=== PATIENT | male | born 1980 | race Caucasian/White ===

== ENCOUNTER 2016-06-19 22:50 | Emergency (ER) | payer MEDICARE, MEDICAID ==
[~2016-06-19] VITALS: Ht 177.8 cm; Wt 114.0 kg
[~2016-06-19 22:50] MED LIST: ATOR1TAB18 PO; CITA20TA4 PO; LEVO-171 PO; LISI10TA PO; MEDR4PAK3 PO; METO100T PO; NAPR250T PO; PRED50 PO
[2016-06-19 22:51] VITALS: BP 158/109; PULSE 121; RESP 20; TEMP 98.5; O2SAT 97
[2016-06-19] MEDS ORDERED: SODIUM CHLOR 0.9% 1000 ML INJ 1,000 ML IV SCH (23:09)
[2016-06-19] MEDS ORDERED: SODIUM CHLORIDE 0.9% FLUSH 5 ML FLUSH IVF PRN (23:15)
[2016-06-19] MEDS ORDERED: SODIUM CHLOR 0.9% 1000 ML INJ 1,000 ML IV ONE (23:15)
--- NOTE | 2016-06-19 23:20 | PD ---
HPI Chief Complaint: Diabetic Time Seen by Provider: 23:02 Travel History International Travel<30 days: No Contact w/Intl Traveler<30days: No Traveled to known affect area: No History of Present Illness HPI Patient is a 35-year-old male with history of hypertension, hyperlipidemia, hypothyroidism, and to emergency room for evaluation of possible diabetes and hyperglycemia. Patient reports that he has a strong family history of diabetes , reports that he does follow up with his primary care doctor and his primary care doctor to tell him that he did not have diabetes but was prediabetic. Reports that he has been checking his blood sugars intermittently. Patient reports that he ate at [email or web address] today and had some pizza, salad and noted his blood sugar to be 245 at 1030pm. Patient reports that he felt so lightheaded and dizzy, reports concerns that he may be a diabetic. Patient denies fevers or chills. Patient denies chest pain or shortness of breath. Patient with no other complaints. Blood sugar in ER 190. PFSH Past Medical History Anxiety: Yes High Cholesterol: Yes Diabetes: Yes Diminished Hearing: No Hypertension: Yes Musculoskeletal: Yes (c/o "slipped disc" back ) Immunizations Current: Yes Thyroid Disease: Yes Past Surgical History Eye Surgery: Yes (RIGHT EYE) Family History Family History: DM Social History Alcohol Use: Yes (OCC) Tobacco Use: No Substance Use: No Allergies-Medications (Allergen,Severity, Reaction): Coded Allergies: No Known Allergies (Verified , 06/19/16) Reported Meds & Prescriptions Reported Meds & Active Scripts Active Reported Citalopram (Citalopram Hydrobromide) 20 Mg Tab 20 Mg PO DAILY Levothyroxine (Levothyroxine Sodium) 300 Mcg Tab 400 Mcg PO DAILY Lisinopril-Hctz 10-12.5 Mg Tab 1 Tab PO DAILY Atorvastatin (Atorvastatin Calcium) 80 Mg Tab 80 Mg PO HS Metoprolol Tartrate 100 Mg Tab 100 Mg PO BID Review of Systems General / Constitutional: No: Fever Eyes: No: Visual changes HENT: Positive: Lightheadedness, No: Headaches Cardiovascular: No: Chest Pain or Discomfort Respiratory: No: Shortness of Breath Gastrointestinal: No: Nausea, Vomiting, Abdominal Pain Genitourinary: No: Urgency, Frequency, Dysuria Musculoskeletal: No: Pain Skin: No Rash Neurologic: Positive: Dizziness, No: Weakness Psychiatric: No: Depression Endocrine: Positive: Polyuria, Polydipsia Hematologic/Lymphatic: No: Easy Bruising Physical Exam Exam Limitations: Poor Historian Narrative GENERAL: nad SKIN: Warm and dry. HEAD: Atraumatic. Normocephalic. ENT: No nasal bleeding or discharge. Mucous membranes pink and moist. NECK: Trachea midline. No JVD. CARDIOVASCULAR: Tachycardic. No murmur appreciated. RESPIRATORY: No accessory muscle use. Clear to auscultation. Breath sounds equal bilaterally. GASTROINTESTINAL: Abdomen soft, non-tender, nondistended. Hepatic and splenic margins not palpable. MUSCULOSKELETAL: No obvious deformities. No clubbing. No cyanosis. No edema. NEUROLOGICAL: Awake and alert. No obvious cranial nerve deficits. Motor grossly within normal limits. Normal speech. PSYCHIATRIC: Appropriate mood and affect; Data Data Last Documented VS Vital Signs Date Time Temp Pulse Resp B/P Pulse Ox O2 Delivery O2 Flow Rate FiO2 06/19/16 22:51 98.5 121 20 158/109 97 Orders Complete Blood Count With Diff (06/19/16 23:09) Comprehensive Metabolic Panel (06/19/16 23:09) Urinalysis - C+S If Indicated (06/19/16 23:09) Iv Access Insert/Monitor (06/19/16 23:09) Ecg Monitoring (06/19/16 23:09) Sodium Chlor 0.9% 1000 Ml Inj (Ns 1000 M (06/19/16 23:09) Sodium Chloride 0.9% Flush (Ns Flush) (06/19/16 23:15) Bedside Glucose SARAH.AC&HS (06/19/16 23:09) Sodium Chlor 0.9% 1000 Ml Inj (Ns 1000 M (06/19/16 23:15) Labs Laboratory Tests Test 06/19/16 23:25 White Blood Count 6.0 TH/MM3 Red Blood Count 4.82 MIL/MM3 Hemoglobin 14.0 GM/DL Hematocrit 41.5 % Mean Corpuscular Volume 86.1 FL Mean Corpuscular Hemoglobin 29.1 PG Mean Corpuscular Hemoglobin 33.8 % Concent Red Cell Distribution Width 12.9 % Platelet Count 99 TH/MM3 Mean Platelet Volume 9.3 FL Neutrophils (%) (Auto) 50.3 % Lymphocytes (%) (Auto) 33.6 % Monocytes (%) (Auto) 14.5 % Eosinophils (%) (Auto) 1.1 % Basophils (%) (Auto) 0.5 % Neutrophils # (Auto) 3.0 TH/MM3 Lymphocytes # (Auto) 2.0 TH/MM3 Monocytes # (Auto) 0.9 TH/MM3 Eosinophils # (Auto) 0.1 TH/MM3 Basophils # (Auto) 0.0 TH/MM3 CBC Comment AUTO DIFF MDM Medical Decision Making Medical Screen Exam Complete: Yes Emergency Medical Condition: Yes Interpretation(s) Vital Signs Date Time Temp Pulse Resp B/P Pulse Ox O2 Delivery O2 Flow Rate FiO2 06/19/16 22:51 98.5 121 20 158/109 97 Differential Diagnosis New onset diabetes, dehydration, anxiety reaction, electrolyte abnormality Narrative Course Patient is a 35-year-old male who presents to emergency room with complaints of possible new-onset diabetes. Patient reports that he has been monitoring his blood sugars and noticed that his blood sugar was high after he ate pizza and drank sweet tea ice tea. Reports "i think I have diabetes." Reports that he has been feeling lightheaded and dizzy over the past few hours. Denies chest pain/sob. Reports that he does follow with his pcp and he was told that he was pre-diabetic and is currently not on any medications for diabetes. pt mildly tachycardic in ER with BS 190. cbc, bmp, ua ordered. will give ivf and hydrate patient. discussed with patient that his hyperglycemia is most likely secondary to his recent meal full of sugars. pt did think about this comment and reports "yeah, i guess you are right." I did educate patient on a healthier diabetic diet. Patient understands importance of decreasing his carbohydrate intake as well as his sugar intake. Understands that if he takes his BS after he eats a high carb/sugar meal, his bs will be elevated. Patient signed out to care of Dr. Smith at end of shift Diagnosis Primary Impression: Hyperglycemia Patient Instructions: General Instructions Additional Instructions: Please follow-up with your primary care doctor as soon as possible Return to ER as needed Please monitor your foods that you eat as meals full of carbohydrates and sugars will elevate your blood sugars Jennifer Sahu DO Jun 19, 2016 23:20
[2016-06-19 23:44] LABS: BASOPHIL % 0.5 % (0.0-2.0); EOSINOPHIL # 0.1 TH/MM3 (0-0.4); EOSINOPHIL % 1.1 % (0.0-4.0); HEMATOCRIT 41.5 % (39.0-51.0); LYMPH % 33.6 % (9.0-44.0); MEAN CELL VOLUME 86.1 FL (80.0-100.0); MEAN CORPUSCULAR HEMOGLOBIN 29.1 PG (27.0-34.0); MEAN CORPUSCULAR HGB CONC 33.8 % (32.0-36.0); MONO % 14.5 % (0.0-8.0); NEUT % 50.3 % (16.0-70.0); PLATELET COUNT 99 TH/MM3 (150-450); RED BLOOD COUNT 4.82 MIL/MM3 (4.50-5.90); RED CELL DISTRIBUTION WIDTH 12.9 % (11.6-17.2)
[2016-06-19 23:56] LABS: HEMO FLAGS AUTO DIFF
[2016-06-19 23:59] LABS: CHLORIDE 102 MEQ/L (98-107); POTASSIUM 3.7 MEQ/L (3.5-5.1); SODIUM (NA) 139 MEQ/L (136-145)
[2016-06-20 00:03] LABS: ANION GAP 10 MEQ/L (5-15); BICARBONATE 26.7 MEQ/L (21.0-32.0); BLOOD UREA NITROGEN 14 MG/DL (7-18)
[2016-06-20 00:06] LABS: ALT (GPT) 80 U/L (12-78); AST (GOT) 39 U/L (15-37); GLOMERULAR FILTRATION RATE 125 ML/MIN (>89)
[2016-06-20 00:08] LABS: TOTAL BILIRUBIN ADULT 0.5 MG/DL (0.2-1.0)
[2016-06-20 00:09] LABS: ALKALINE PHOSPHATASE 65 U/L (45-117)
[2016-06-20 00:20] LABS: PLATELET ESTIMATE SMEAR LOW (NORMAL); PLATELET MORPHOLOGY ENLARGED (NORMAL); SCAN/DIFF AUTO DIFF CONFIRMED
[2016-06-20 00:24] LABS: BLOOD, URINE NEG (NEG); GLUCOSE,URINE NEG (NEG); KETONE, URINE NEG (NEG); NITRITE,URINE NEG (NEG)
[2016-06-20 00:29] LABS: METHOD OF COLLECTION CLEAN CATCH; URINE COLOR YELLOW (YELLW/STRAW)
[2016-06-20 00:31] LABS: COMMENT (UR) CULT NOT INDICATED; CULTURE IF INDICATED CULT NOT INDICATED; SQUAMOUS EPITHELIAL CELL URINE 0-5 /hpf (0-5); WBC, URINE 0-2 /hpf (0-5)
--- NOTE | 2016-06-20 00:47 | PD ---
Physical Exam Time Seen by Provider: 00:[address] Sahu left this patient with me to make sure the blood sugar came down and discharge the patient. Data Data Last Documented VS Vital Signs Date Time Temp Pulse Resp B/P Pulse Ox O2 Delivery O2 Flow Rate FiO2 06/19/16 22:51 98.5 121 20 158/109 97 Orders Complete Blood Count With Diff (06/19/16 23:09) Comprehensive Metabolic Panel (06/19/16 23:09) Urinalysis - C+S If Indicated (06/19/16 23:09) Iv Access Insert/Monitor (06/19/16 23:09) Ecg Monitoring (06/19/16 23:09) Sodium Chlor 0.9% 1000 Ml Inj (Ns 1000 M (06/19/16 23:09) Sodium Chloride 0.9% Flush (Ns Flush) (06/19/16 23:15) Bedside Glucose SARAH.AC&HS (06/19/16 23:09) Sodium Chlor 0.9% 1000 Ml Inj (Ns 1000 M (06/19/16 23:15) Labs Laboratory Tests Test 06/19/16/06/05 23:25 00:05 White Blood Count 6.0 TH/MM3 Red Blood Count 4.82 MIL/MM3 Hemoglobin 14.0 GM/DL Hematocrit 41.5 % Mean Corpuscular Volume 86.1 FL Mean Corpuscular Hemoglobin 29.1 PG Mean Corpuscular Hemoglobin 33.8 % Concent Red Cell Distribution Width 12.9 % Platelet Count 99 TH/MM3 Mean Platelet Volume 9.3 FL Neutrophils (%) (Auto) 50.3 % Lymphocytes (%) (Auto) 33.6 % Monocytes (%) (Auto) 14.5 % Eosinophils (%) (Auto) 1.1 % Basophils (%) (Auto) 0.5 % Neutrophils # (Auto) 3.0 TH/MM3 Lymphocytes # (Auto) 2.0 TH/MM3 Monocytes # (Auto) 0.9 TH/MM3 Eosinophils # (Auto) 0.1 TH/MM3 Basophils # (Auto) 0.0 TH/MM3 CBC Comment AUTO DIFF Differential Comment AUTO DIFF CONFIRMED Platelet Estimate LOW Platelet Morphology Comment ENLARGED Sodium Level 139 MEQ/L Potassium Level 3.7 MEQ/L Chloride Level 102 MEQ/L Carbon Dioxide Level 26.7 MEQ/L Anion Gap 10 MEQ/L Blood Urea Nitrogen 14 MG/DL Creatinine 0.72 MG/DL Estimat Glomerular Filtration 125 ML/MIN Rate Random Glucose 166 MG/DL Calcium Level 8.8 MG/DL Total Bilirubin 0.5 MG/DL Aspartate Amino Transf 39 U/L (AST/SGOT) Alanine Aminotransferase 80 U/L (ALT/SGPT) Alkaline Phosphatase 65 U/L Total Protein 7.5 GM/DL Albumin 3.7 GM/DL Urine Collection Type CLEAN CATCH Urine Color YELLOW Urine Turbidity CLEAR Urine pH 6.0 Urine Specific [place] 1.021 Urine Protein NEG mg/dL Urine Glucose (UA) NEG mg/dL Urine Ketones NEG mg/dL Urine Occult Blood NEG Urine Nitrite NEG Urine Bilirubin NEG Urine Leukocyte Esterase NEG Urine WBC 0-2 /hpf Urine Squamous Epithelial 0-5 /hpf Cells Microscopic Urinalysis Comment CULT NOT INDICATED MDM Medical Record Reviewed: Yes Supervised Visit with [place]: Yes Interpretation(s) It is now 1240 and the patient's blood sugar is 137. He feels fine and is ready to go home. Differential Diagnosis Hyperglycemia, diabetes [id number], electrolyte disorder, anxiety, dehydration Narrative Course The patient has been given IV fluids and his blood sugar is down to 137. He is ready to go home. He needs to follow-up with his primary care physician. Diagnosis Primary Impression: Hyperglycemia Patient Instructions: General Instructions Additional Instruction: Please follow-up with your primary care doctor as soon as possible Return to ER as needed Please monitor your foods that you eat as meals full of carbohydrates and sugars will elevate your blood sugars Med/Other Pt SpecificInfo: No Change to Meds Disposition: 01 DISCHARGE HOME Condition: Stable Darrion Smith MD Jun 20, 2016 00:47
[2016-06-20 01:09] VITALS: BP 162/98
== END 2016-06-20 01:14 | disposition home or self-care (01) ==
LOC: PHED 22:50
DX: E11.65 Type 2 diabetes mellitus with hyperglycemia (principal); E78.00 Pure hypercholesterolemia, unspecified; I10 Essential (primary) hypertension; F41.9 Anxiety disorder, unspecified
CPT/HCPCS: 80053; 81001; 85025; 96360; 96361; 99284; J7030

== ENCOUNTER 2017-02-09 01:06 | Emergency (ER) | payer MEDICARE, MEDICAID ==
[~2017-02-09] VITALS: Ht 177.8 cm; Wt 114.0 kg
[~2017-02-09 01:06] MED LIST changes: -MEDR4PAK3 PO; -NAPR250T PO; -PRED50 PO
[2017-02-09 01:14] VITALS: BP 176/113; PULSE 103; RESP 20; TEMP 98.2; O2SAT 99
[2017-02-09 01:34] LABS: BASOPHIL # 0.1 TH/MM3 (0-0.2); BASOPHIL % 0.9 % (0.0-2.0); EOSINOPHIL # 0.1 TH/MM3 (0-0.4); EOSINOPHIL % 2.1 % (0.0-4.0); HEMATOCRIT 38.9 % (39.0-51.0); HEMO FLAGS DIFF FINAL; LYMPH % 35.6 % (9.0-44.0); LYMPHOCYTE # 2.1 TH/MM3 (1.0-4.8); MEAN CORPUSCULAR HEMOGLOBIN 29.5 PG (27.0-34.0); MEAN CORPUSCULAR HGB CONC 34.3 % (32.0-36.0); MONO % 11.8 % (0.0-8.0); NEUT % 49.6 % (16.0-70.0); PLATELET COUNT 108 TH/MM3 (150-450); RED BLOOD COUNT 4.52 MIL/MM3 (4.50-5.90); RED CELL DISTRIBUTION WIDTH 12.1 % (11.6-17.2)
[2017-02-09 01:43] LABS: CHLORIDE 103 MEQ/L (98-107); POTASSIUM 3.5 MEQ/L (3.5-5.1); SODIUM (NA) 138 MEQ/L (136-145)
[2017-02-09] MEDS ORDERED: GABA300C5 PO (01:44)
[2017-02-09] MEDS ORDERED: MELO7.5T4 PO (01:44)
[2017-02-09] MEDS ORDERED: PRAZ1CAP PO (01:44)
[2017-02-09] MEDS ORDERED: TRAZ50TA12 PO (01:44)
[2017-02-09] MEDS ORDERED: SODIUM CHLORIDE 0.9% FLUSH 10 ML FLUSH IVF PRN (01:45)
[2017-02-09 01:46] VITALS: O2SAT 100
[2017-02-09 01:47] LABS: ANION GAP 9 MEQ/L (5-15); BICARBONATE 26.2 MEQ/L (21.0-32.0); BLOOD UREA NITROGEN 13 MG/DL (7-18)
[2017-02-09 01:49] VITALS: BP 176/113; PULSE 103
[2017-02-09 01:50] VITALS: BP 169/104; PULSE 103
[2017-02-09 01:50] LABS: AST (GOT) 22 U/L (15-37); GLOMERULAR FILTRATION RATE 117 ML/MIN (>89)
[2017-02-09 01:51] LABS: TOTAL BILIRUBIN ADULT 0.3 MG/DL (0.2-1.0)
--- NOTE | 2017-02-09 01:52 | PD ---
HPI Chief Complaint: Chest Pain Time Seen by Provider: 01:39 Travel History International Travel<30 days: No Contact w/Intl Traveler<30days: No Traveled to known affect area: No History of Present Illness HPI The patient is a 36-year-old male that states she was walking back from the [facility] when he felt a sharp, stabbing pain over the mid sternum and it hurt to take a deep breath. He denies any fever and he has had a headache before he left for the store. He says both ankles felt numb but this has resolved. Apparently, he called the ambulance and the ambulance personnel gave him nitroglycerin spray and 2 baby aspirin. He has a learning disability and this is why he is on Medicare. He has no history of heart disease. He does have a history of hypertension as well as elevated cholesterol and hypothyroid. He also has obesity. PFSH Past Medical History Anxiety: Yes Cardiovascular Problems: Yes (htn) High Cholesterol: Yes Diabetes: Yes (not diagnosed) Patient Takes Glucophage: No Diminished Hearing: No Hypertension: Yes Musculoskeletal: Yes (c/o "slipped disc" back ) Immunizations Current: Yes Thyroid Disease: Yes Tetanus Vaccination: Unknown Influenza Vaccination: No Past Surgical History Surgical History: No Previous Surgery Eye Surgery: Yes (RIGHT EYE) Social History Alcohol Use: Yes (OCC) Tobacco Use: No Substance Use: No Allergies-Medications (Allergen,Severity, Reaction): Coded Allergies: No Known Allergies (Verified , 06/19/16) Reported Meds & Prescriptions Reported Meds & Active Scripts Active Prednisone 50 Mg Tab 50 Mg PO DAILY 7 Days Reported Trazodone (Trazodone HCl) 50 Mg Tab 50 Mg PO HS PRN Meloxicam 7.5 Mg Tab 7.5 Mg PO DAILY Prazosin (Prazosin HCl) 1 Mg Cap 1 Mg PO QD Gabapentin 300 Mg Cap 300 Mg PO TID Levothyroxine (Levothyroxine Sodium) 300 Mcg Tab 400 Mcg PO DAILY Lisinopril-Hctz 10-12.5 Mg Tab 1 Tab PO DAILY Metoprolol Tartrate 100 Mg Tab 100 Mg PO BID Review of Systems Except as stated in HPI: all other systems reviewed are Neg Physical Exam Narrative GENERAL: The patient is alert, oriented 3 in minimal apparent distress with his chest discomfort. His vital signs show temperature 176/113 with a heart rate of 103. SKIN: Focused skin assessment warm/dry. HEAD: Atraumatic. Normocephalic. EYES: Pupils equal and round. No scleral icterus. No injection or drainage. ENT: No nasal bleeding or discharge. Mucous membranes pink and moist. NECK: Trachea midline. No JVD. CARDIOVASCULAR: Regular rate and rhythm. No murmur appreciated. RESPIRATORY: No accessory muscle use. Clear to auscultation. Breath sounds equal bilaterally. GASTROINTESTINAL: Abdomen soft, non-tender, nondistended. Hepatic and splenic margins not palpable. MUSCULOSKELETAL: No obvious deformities. No clubbing. No cyanosis. No edema. NEUROLOGICAL: Awake and alert. No obvious cranial nerve deficits. Motor grossly within normal limits. Normal speech. PSYCHIATRIC: Appropriate mood and affect; insight and judgment normal. Data Data Last Documented VS Vital Signs Date Time Temp Pulse Resp B/P (MAP) Pulse Ox O2 Delivery O2 Flow Rate FiO2 02/09/17 02:31 101 172/97 (122) 02/09/17 01:46 100 Nasal Cannula 2.00 02/09/17 01:14 98.2 20 Orders Orders Complete Blood Count With Diff (02/09/17 01:19) Comprehensive Metabolic Panel (02/09/17 01:19) Troponin I (02/09/17 01:19) Electrocardiogram (02/09/17 01:39) D-Dimer (02/09/17 01:39) Ecg Monitoring (02/09/17 01:39) Bilateral Bp Monitoring (02/09/17 01:39) Iv Access Insert/Monitor (02/09/17 01:39) Oximetry (02/09/17 01:39) Oxygen Administration (02/09/17 01:39) Sodium Chloride 0.9% Flush (Ns Flush) (02/09/17 01:45) Chest, Pa & Lat (02/09/17 01:39) Magnesium (Mg) (02/09/17 01:25) Labs Laboratory Tests Test 02/09/17 01:25 White Blood Count 6.0 TH/MM3 Red Blood Count 4.52 MIL/MM3 Hemoglobin 13.3 GM/DL Hematocrit 38.9 % Mean Corpuscular Volume 86.0 FL Mean Corpuscular Hemoglobin 29.5 PG Mean Corpuscular Hemoglobin Concent 34.3 % Red Cell Distribution Width 12.1 % Platelet Count 108 TH/MM3 Mean Platelet Volume 10.4 FL Neutrophils (%) (Auto) 49.6 % Lymphocytes (%) (Auto) 35.6 % Monocytes (%) (Auto) 11.8 % Eosinophils (%) (Auto) 2.1 % Basophils (%) (Auto) 0.9 % Neutrophils # (Auto) 3.0 TH/MM3 Lymphocytes # (Auto) 2.1 TH/MM3 Monocytes # (Auto) 0.7 TH/MM3 Eosinophils # (Auto) 0.1 TH/MM3 Basophils # (Auto) 0.1 TH/MM3 CBC Comment DIFF FINAL Differential Comment D-Dimer Quantitative (PE/DVT) LESS THAN 0.19 MG/L FEU Blood Urea Nitrogen 13 MG/DL Creatinine 0.76 MG/DL Random Glucose 123 MG/DL Total Protein 7.0 GM/DL Albumin 3.4 GM/DL Calcium Level 8.6 MG/DL Magnesium Level 1.6 MG/DL Alkaline Phosphatase 55 U/L Aspartate Amino Transf (AST/SGOT) 22 U/L Alanine Aminotransferase (ALT/SGPT) 40 U/L Total Bilirubin 0.3 MG/DL Sodium Level 138 MEQ/L Potassium Level 3.5 MEQ/L Chloride Level 103 MEQ/L Carbon Dioxide Level 26.2 MEQ/L Anion Gap 9 MEQ/L Estimat Glomerular Filtration Rate 117 ML/MIN Troponin I LESS THAN 0.02 NG/ML MDM Medical Decision Making Medical Screen Exam Complete: Yes Emergency Medical Condition: Yes Medical Record Reviewed: Yes Interpretation(s) The EKG shows sinus tachycardia of 108 and minimal voltage criteria for LVH. No acute ST elevation or depression. The d-dimer is less than 0.19. The complete metabolic profile shows a glucose of 123 but is otherwise unremarkable. The troponin I is normal. The CBC is normal except for hematocrit of 38.9. Differential Diagnosis Atypical chest pain, chest wall pain, pleuritic chest pain, acute coronary syndrome-unlikely, esophageal pain, gastrointestinal pain, electrolyte disorder , hypo-/hyperglycemia, renal insufficiency, anxiety Narrative Course The patient has atypical chest pain. There is nothing in the history that suggest a myocardial infarction and there is nothing in the EKG or lab work that suggest a myocardial infarction. Diagnosis Primary Impression: Atypical chest pain Additional Instructions: Follow-up with your primary care physician next week. The lab work is given to you to take to him. This does not appear to be heart related pain, this appears to be likely chest wall pain. Med/Other Pt SpecificInfo: No Change to Meds Disposition: 01 DISCHARGE HOME Condition: Stable Darrion Smith MD Feb 09, 2017 01:52
[2017-02-09 01:53] LABS: ALKALINE PHOSPHATASE 55 U/L (45-117)
[2017-02-09 02:01] LABS: ALT (GPT) 40 U/L (12-78)
[2017-02-09 02:07] LABS: MAGNESIUM 1.6 MG/DL (1.5-2.5)
[2017-02-09] MEDS ORDERED: PRED50 PO (02:14)
--- NOTE | 2017-02-09 02:21 | RADRPT ---
EXAM DATE/TIME: 02/09/2017 01:52 [facility] COMPARISON: No previous studies available for comparison. INDICATIONS : Chest pain. MEDICAL HISTORY : None. SURGICAL HISTORY : None. ENCOUNTER: Initial ACUITY: 1 day PAIN SCORE: 7/10 LOCATION: Bilateral chest FINDINGS: PA and lateral views of the chest demonstrate the lungs to be symmetrically aerated without evidence of mass, infiltrate or effusion. The cardiomediastinal contours are unremarkable. Osseous structure s are intact. CONCLUSION: The lungs are clear. Sky Diez MD on February 09, 2017 at 2:20 Board Certified Radiologist. This report was verified electronically.
[2017-02-09 02:31] VITALS: BP 172/97; PULSE 101
[2017-02-09 03:18] VITALS: BP 164/99; TEMP 98.1
--- NOTE | 2017-02-09 16:34 | EKG ---
Date Performed: 02/09/2017 Time Performed: 01:08:38 PTAGE: 36 years EKG: SINUS TACHYCARDIA POSSIBLE LVH Compared to prior tracing no significant change ABNORMAL ECG PREVIOUS TRACING : 07/04/1992 16.26 DOCTOR: Reuben Rudd Interpretating Date/Time 02/09/2017 16:33:16
== END 2017-02-09 03:21 | disposition home or self-care (01) ==
LOC: PHED 01:06
DX: R07.89 Other chest pain (principal); R51 Headache; I10 Essential (primary) hypertension; E03.9 Hypothyroidism, unspecified; Z79.899 Other long term (current) drug therapy
CPT/HCPCS: 71020; 80053; 83735; 84484; 85025; 85379; 93005; 99285

== ENCOUNTER 2017-03-11 12:58 | Emergency (ER) | payer MEDICARE, MEDICAID ==
[~2017-03-11] VITALS: Ht 177.8 cm; Wt 111.1 kg
[~2017-03-11 12:58] MED LIST changes: -ATOR1TAB18 PO; -CITA20TA4 PO; +GABA300C5 PO; +MELO7.5T4 PO; +PRAZ1CAP PO; +TRAZ50TA12 PO
[2017-03-11 13:02] VITALS: BP 160/97; PULSE 89; RESP 16; TEMP 98.5; O2SAT 96
[2017-03-11] MEDS ORDERED: PENI500T PO (13:42)
--- NOTE | 2017-03-11 13:42 | PD ---
HPI . Dentalgia Chief Complaint: Oral / Dental Pain or Problem Time Seen by Provider: 13:18 Travel History International Travel<30 days: No Contact w/Intl Traveler<30days: No Traveled to known affect area: No History of Present Illness HPI 36-year-old male patient presents emergency department for evaluation of dentalgia. The pain is originating at tooth #17 and initially started approximately one week ago. Patient states that he has had recurrent problems with his teeth and needs to get them pulled but has been unable to for financial constraints. There is obvious decay to multiple teeth throughout the patient's mouth. Tooth #17 is largely decayed. There is gingival erythema surrounding the tooth and a small amount of purulent drainage oozing from behind the tooth. The patient denies any fevers, chills, malaise, chest pain, shortness breath, abdominal pain, nausea, vomiting, diarrhea or lightheadedness. PFSH Past Medical History Hx Anticoagulant Therapy: No Anxiety: Yes Cardiovascular Problems: Yes (HTN, CHOL) High Cholesterol: Yes Diabetes: Yes (BORDERLINE) Diminished Hearing: No Hypertension: Yes Musculoskeletal: Yes (c/o "slipped disc" back ) Immunizations Current: Yes Thyroid Disease: Yes Tetanus Vaccination: Unknown Past Surgical History Eye Surgery: Yes (RIGHT EYE) Social History Alcohol Use: No Tobacco Use: No Substance Use: No Allergies-Medications (Allergen,Severity, Reaction): Coded Allergies: No Known Allergies (Verified , 03/11/17) Reported Meds & Prescriptions Reported Meds & Active Scripts Active Chlorhexidine Gluconate (Mouth) Liq (Chlorhexidine Gluconate) 0.12% Soln 15 Ml SWISH-SPIT BID Penicillin V Potassium 500 Mg Tab 500 Mg PO Q6H 7 Days Reported Trazodone (Trazodone HCl) 50 Mg Tab 50 Mg PO HS PRN Meloxicam 7.5 Mg Tab 7.5 Mg PO DAILY Prazosin (Prazosin HCl) 1 Mg Cap 1 Mg PO QD Gabapentin 300 Mg Cap 300 Mg PO TID Levothyroxine (Levothyroxine Sodium) 300 Mcg Tab 400 Mcg PO DAILY Lisinopril-Hctz 10-12.5 Mg Tab 1 Tab PO DAILY Metoprolol Tartrate 100 Mg Tab 100 Mg PO BID Review of Systems Except as stated in HPI: all other systems reviewed are Neg Physical Exam Narrative GENERAL: Well-nourished, well-developed 36-year-old male patient in no acute distress. Nontoxic appearing. SKIN: Focused skin assessment warm/dry. HEAD: Normocephalic. Atraumatic. EYES: No scleral icterus. No injection or drainage. MOUTH: Moderate amount of gingival erythema and edema noted around tooth #17. Small amount of purulent drainage noted oozing from the posterior aspect of tooth #17. NECK: Supple, trachea midline. No JVD or lymphadenopathy. CARDIOVASCULAR: Regular rate and rhythm without murmurs, gallops, or rubs. RESPIRATORY: Breath sounds equal bilaterally. No accessory muscle use. GASTROINTESTINAL: Abdomen soft, non-tender, nondistended. MUSCULOSKELETAL: No cyanosis, or edema. BACK: Nontender without obvious deformity. No CVA tenderness. Data Data Last Documented VS Vital Signs Date Time Temp Pulse Resp B/P (MAP) Pulse Ox O2 Delivery O2 Flow Rate FiO2 03/11/17 13:02 98.5 89 16 160/97 (118) 96 Orders Orders Ed Discharge Order (03/11/17 13:42) MDM Medical Decision Making Medical Screen Exam Complete: Yes Emergency Medical Condition: Yes Differential Diagnosis Differential diagnoses include but not limited to dental abscess, pulpitis, gingivitis Narrative Course 36-year-old male patient presents emergency department for evaluation of dentalgia 1 week. Patient is well-appearing and denies having had any fevers. Patient is afebrile here in triage. Moderate amount of gingival erythema and edema noted around tooth #17 with a pain is originating. Small amount of purulent discharge oozing from the posterior aspect of tooth #17. There is no pockets of infection that currently needs drained due to the fact that it is already draining. Patient will be given antibiotics, chlorhexidine mouthwash and instructions to follow-up with the dentist. Patient will be given community resource information such as the [facility]. Patient instructed to return the emergency Department with any signs of worsening infection. Diagnosis Primary Impression: Dental abscess Referrals: Dentist Patient Instructions: Dental Abscess (ED), General Instructions Additional Instructions: Continue to use clove oil. Take medications as prescribed. Return to the emergency Department with any worsening infection such as increasing pain, fevers, chills. Follow-up with a dentist. May use [id number] ibuprofen as needed for pain or swelling. May use ice or heating packs as needed for pain management and swelling. Med/Other Pt SpecificInfo: Prescription(s) given Scripts Chlorhexidine Gluconate (Mouth) Liq (Chlorhexidine Gluconate (Mouth) Liq) 0.12% Soln 15 ML SWISH-SPIT BID, #473 ML 0 Refills Prov: Jessie Lee 03/11/17 Penicillin V Potassium (Penicillin V Potassium) 500 Mg Tab 500 MG PO Q6H for Infection for 7 Days, #28 TAB 0 Refills Prov: Jessie Lee 03/11/17 Disposition: 01 DISCHARGE HOME Condition: Stable Jessie Lee Mar 11, 2017 13:42
[2017-03-11] MEDS ORDERED: CHLO.12%30 SWISH-SPIT (13:45)
== END 2017-03-11 14:07 | disposition home or self-care (01) ==
LOC: PHEFT 12:58
DX: K04.7 Periapical abscess without sinus (principal); I10 Essential (primary) hypertension; R73.03 Prediabetes; E07.9 Disorder of thyroid, unspecified; E78.00 Pure hypercholesterolemia, unspecified; Z86.59 Personal history of other mental and behavioral disorders; Z86.79 Personal history of other diseases of the circulatory system; Z87.39 Personal history of other diseases of the musculoskeletal system and connective tissue
CPT/HCPCS: 99283

== ENCOUNTER 2017-06-24 13:01 | Emergency (ER) | payer MEDICARE, MEDICAID ==
[~2017-06-24] VITALS: Ht 177.8 cm; Wt 111.0 kg
[~2017-06-24 13:01] MED LIST changes: +CHLO.12%30 SWISH-SPIT; +MELO7.5T27 PO; -MELO7.5T4 PO; +PENI500T PO
[2017-06-24 13:07] VITALS: BP 169/114; PULSE 73; RESP 16; TEMP 98.4; O2SAT 97
[2017-06-24] MEDS ORDERED: AZIT250T3 PO (15:22)
[2017-06-24] MEDS ORDERED: ALBUAER3 INH (15:22)
--- NOTE | 2017-06-24 15:23 | PD ---
HPI Chief Complaint: Cold / Flu Symptoms Time Seen by Provider: 14:36 Travel History International Travel<30 days: No Contact w/Intl Traveler<30days: No Traveled to known affect area: No History of Present Illness HPI This is a 36-year-old male here with reported productive cough 10 days. He is reporting colored sputum. Subjective fevers. He is also reporting intermittent wheezing. Symptom severity is moderate. No aggravating or alleviating factors. PFSH Past Medical History Hx Anticoagulant Therapy: No Anxiety: Yes Cardiovascular Problems: Yes (HTN, CHOL) High Cholesterol: Yes Diabetes: Yes (BORDERLINE) Diminished Hearing: No Hypertension: Yes Musculoskeletal: Yes (c/o "slipped disc" back ) Immunizations Current: Yes Thyroid Disease: Yes Past Surgical History Eye Surgery: Yes (RIGHT EYE) Social History Alcohol Use: No Tobacco Use: No Substance Use: No Allergies-Medications (Allergen,Severity, Reaction): Coded Allergies: No Known Allergies (Verified Adverse Reaction, Unknown, 06/24/17) Reported Meds & Prescriptions Reported Meds & Active Scripts Active Chlorhexidine Gluconate (Mouth) Liq (Chlorhexidine Gluconate) 0.12% Soln 15 Ml SWISH-SPIT BID Penicillin V Potassium 500 Mg Tab 500 Mg PO Q6H 7 Days Reported Trazodone (Trazodone HCl) 50 Mg Tab 50 Mg PO HS PRN Meloxicam 7.5 Mg Tab 7.5 Mg PO DAILY Prazosin (Prazosin HCl) 1 Mg Cap 1 Mg PO QD Gabapentin 300 Mg Cap 300 Mg PO TID Levothyroxine (Levothyroxine Sodium) 300 Mcg Tab 400 Mcg PO DAILY Lisinopril-Hctz 10-12.5 Mg Tab 1 Tab PO DAILY Metoprolol Tartrate 100 Mg Tab 100 Mg PO BID Review of Systems Except as stated in HPI: all other systems reviewed are Neg General / Constitutional: Positive: Fever Eyes: No: Visual changes HENT: No: Headaches Cardiovascular: No: Chest Pain or Discomfort Respiratory: Positive: Cough Gastrointestinal: No: Abdominal Pain Genitourinary: No: Dysuria Musculoskeletal: No: Pain Physical Exam Narrative GENERAL: Alert and well-appearing 36-year-old male. SKIN: Warm and dry. No rash HEAD: Normocephalic. EYES: No injection or drainage. Ear/nose/throat: No TM erythema. Clear nasal discharge. Mild pharyngeal erythema without tonsillar hypertrophy or exudate. NECK: Supple. No meningismus CARDIOVASCULAR: Regular rate and rhythm RESPIRATORY: Breath sounds equal bilaterally. No accessory muscle use. Rhonchorous cough GASTROINTESTINAL: Abdomen soft, non-tender, nondistended. MUSCULOSKELETAL: No cyanosis, or edema. BACK: No CVA tenderness. Data Data Last Documented VS Vital Signs Date Time Temp Pulse Resp B/P (MAP) Pulse Ox O2 Delivery O2 Flow Rate FiO2 06/24/17 13:07 98.4 73 16 169/114 (132) 97 MDM Medical Decision Making Medical Screen Exam Complete: Yes Emergency Medical Condition: Yes Differential Diagnosis Bronchitis, pneumonia, influenza, reactive airway Narrative Course 6-year-old male here with productive cough 10 days. His vital signs are stable. Be treated for bronchitis. Diagnosis Primary Impression: Bronchitis Referrals: Primary Care Physician Scripts Albuterol 8.5 GM Inh (Proair Hfa 8.5 GM Inh) 90 Mcg/Act Aer 2 PUFF INH Q4-6H Y for SHORTNESS OF BREATH, #1 INHALER 0 Refills 108 mcg/actuation Prov: Milagros Rooney 06/24/17 Azithromycin (Azithromycin) 250 Mg Tab 250 MG PO DIRECTED for Infection, #6 TAB 0 Refills Take 2 tabs (500 mg) on day 1 then 1 tab daily x 4 days. Prov: Milagros Rooney 06/24/17 Milagros Rooney Jun 24, 2017 15:22
== END 2017-06-24 15:39 | disposition home or self-care (01) ==
LOC: PHEFT 13:01
DX: J40 Bronchitis, not specified as acute or chronic (principal); E11.9 Type 2 diabetes mellitus without complications; E78.00 Pure hypercholesterolemia, unspecified; I10 Essential (primary) hypertension; F41.9 Anxiety disorder, unspecified; E07.9 Disorder of thyroid, unspecified
CPT/HCPCS: 99283

== ENCOUNTER 2017-07-18 04:32 | Emergency (ER) | payer MEDICAID, MEDICARE ==
[~2017-07-18] VITALS: Ht 177.8 cm; Wt 111.5 kg
[~2017-07-18 04:32] MED LIST changes: +ALBUAER3 INH; +AZIT250T3 PO
[2017-07-18 04:38] VITALS: BP 155/104; PULSE 99; RESP 16; TEMP 97.5; O2SAT 100
[2017-07-18 04:46] VITALS: BP 155/104; PULSE 99; RESP 16; TEMP 97.5; O2SAT 100
--- NOTE | 2017-07-18 07:22 | PD ---
HPI Chief Complaint: Musculoskeletal Complaint Time Seen by Provider: 06:58 Travel History International Travel<30 days: No Contact w/Intl Traveler<30days: No Traveled to known affect area: No History of Present Illness HPI This is a 36-year-old male who presents for right shoulder injury. He has left- hand-dominant. 6 days ago, he stood up and hit the superior aspect of the right shoulder on the bottom of an open cabinet. He did not fall down or hit his head. He complains of pain in the anterior and superior aspect of the right shoulder since then. Aggravated by movement though patient does have full range of motion of the shoulder. No focal weakness, numbness, tingling. No neck or back pain. He has been otherwise well the last few days without fever, chills, cough, congestion. He has tried taking anti-inflammatories. He has not yet followed up with his primary physician regarding this. Symptoms are mild in severity. Onset with trauma. PFSH Past Medical History Hx Anticoagulant Therapy: No Anxiety: Yes Cardiovascular Problems: Yes (HTN) High Cholesterol: Yes Diabetes: Yes (BORDERLINE) Patient Takes Glucophage: No Diminished Hearing: No Hypertension: Yes Medical other: Yes (NEUROPATHY) Musculoskeletal: Yes (c/o "slipped disc" back ) Immunizations Current: Yes Thyroid Disease: Yes Tetanus Vaccination: Unknown ?: Not Past Surgical History Eye Surgery: Yes (RIGHT EYE) Social History Alcohol Use: Yes (Occasional) Tobacco Use: No Substance Use: No Allergies-Medications (Allergen,Severity, Reaction): Coded Allergies: No Known Allergies (Verified Adverse Reaction, Unknown, 07/18/17) Reported Meds & Prescriptions Reported Meds & Active Scripts Active Proair Hfa 8.5 GM Inh (Albuterol Sulfate) 90 Mcg/Act Aer 2 Puff INH Q4-6H PRN 108 mcg/actuation Reported Trazodone (Trazodone HCl) 50 Mg Tab 50 Mg PO HS PRN Meloxicam 7.5 Mg Tab 7.5 Mg PO DAILY Prazosin (Prazosin HCl) 1 Mg Cap 1 Mg PO QD Gabapentin 300 Mg Cap 300 Mg PO TID Levothyroxine (Levothyroxine Sodium) 300 Mcg Tab 400 Mcg PO DAILY Lisinopril-Hctz 10-12.5 Mg Tab 1 Tab PO DAILY Metoprolol Tartrate 100 Mg Tab 100 Mg PO BID Review of Systems General / Constitutional: No: Fever, Chills HENT: No: Headaches Respiratory: No: Cough Gastrointestinal: No: Vomiting Musculoskeletal: Positive: Pain, No: Limited ROM, Weakness, Edema Skin: No Rash Neurologic: No: Weakness Physical Exam Narrative GENERAL: Alert, well nourished, well appearing patient resting on the bed in no acute distress. Vital Signs reviewed SKIN: Focused skin assessment warm/dry. HEAD: Atraumatic. Normocephalic. EYES: Pupils equal and round. No scleral icterus. No injection or drainage. ENT: No nasal bleeding or discharge. Mucous membranes pink and moist. NECK: Trachea midline. No JVD. Spontaneous, painless full range of motion with no meningismus CARDIOVASCULAR: Regular rate and rhythm. No murmur appreciated. Extremities warm and well perfused with bounding peripheral pulses RESPIRATORY: No accessory muscle use. Clear to auscultation. Breath sounds equal bilaterally. Breathing easily and speaking in full sentences MUSCULOSKELETAL: No obvious deformities. No clubbing. No cyanosis. No edema. Right upper extremity: Patient is spontaneously moving his right shoulder throughout the history and physical. He has full range of motion of right shoulder, symmetric with left. Painless full range of motion of right elbow and wrist. Bounding right radial pulse. Sensation is intact in entire right upper extremity including over the deltoid. Compartments are soft and entire right upper extremity. NEUROLOGICAL: Awake and alert. No obvious cranial nerve deficits. Motor grossly within normal limits. Normal speech. Sensation intact. Normal gait Data Data Last Documented VS Vital Signs Date Time Temp Pulse Resp B/P (MAP) Pulse Ox O2 Delivery O2 Flow Rate FiO2 07/18/17 04:46 97.5 99 16 155/104 (121) 100 Orders Orders Shoulder, Complete (>2vws) (07/18/17 07:07) [facility] Medical Decision Making Medical Screen Exam Complete: Yes Emergency Medical Condition: Yes Medical Record Reviewed: Yes Interpretation(s) Last 24 hours Impressions Shoulder X-Ray 07/18/17706 Signed Impressions: Service Date/Time: , July 18, 2017 07:29 - CONCLUSION: No acute fracture. Shane Riojas MD Differential Diagnosis Sprain, rotator cuff injury, contusion, fracture, bursitis Narrative Course The patient appears very well. He has spontaneous, painless full range of motion of right shoulder. X-ray shows no acute fracture. We discussed possibility of rotator cuff injury that would not appear on x-ray. Plan for discharge with supportive care and close outpatient follow-up. Patient understands the importance of close outpatient follow-up. He understands he may require further testing and treatment as an outpatient. He understands strict return indications. He is comfortable with this plan and eager to go home. Diagnosis Primary Impression: Contusion of right shoulder Qualified Codes: S40.011A - Contusion of right shoulder, initial encounter Referrals: Primary Care Physician 3 days Patient Instructions: General Instructions, Shoulder Pain (ED) Additional Instructions: Use Naprosyn with food as needed for pain. Do not use with other NSAIDs such as ibuprofen. Follow-up with primary physician within 1-4 days for follow-up. Call today to make an appointment. You may require further testing and treatment as an outpatient. Med/Other Pt SpecificInfo: Prescription(s) given Scripts Naproxen (Naprosyn) 500 Mg Tab 500 MG PO BID Y for PAIN SCALE 1 TO 10, #10 TAB 0 Refills Prov: Mya Lopez MD 07/18/17 Disposition: DISCHARGE HOME Condition: Stable Mya Lopez MD Jul 18, 2017 07:22
--- NOTE | 2017-07-18 07:47 | RADRPT ---
EXAM DATE/TIME: 07/18/2017 07:29 [facility] COMPARISON: No previous studies available for comparison. INDICATIONS : Right upper shoulder pain after standing up under cabinet 6 days ago. MEDICAL HISTORY : Hypertension. Hypercholesterolemia. Thyroid disease. Diabetic, Neuropathy. SURGICAL HISTORY : None. ENCOUNTER: Initial ACUITY: 1 day PAIN SCORE: 8/10 LOCATION: Right upper shoulder. FINDINGS: Multiple view examination of the right shoulder demonstrates no evidence of fracture or dislocation. The glenohumeral and acromioclavicular joints are maintained. There is normal range of motion betwe en internal and external rotation. Bony mineralization is normal. CONCLUSION: No acute fracture. Shane Riojas MD on July 18, 2017 at 7:45 Board Certified Radiologist. This report was verified electronically.
[2017-07-18] MEDS ORDERED: NAPR500 PO (08:02)
== END 2017-07-18 08:34 | disposition home or self-care (01) ==
LOC: PHED 04:32
DX: S40.011A Contusion of right shoulder, initial encounter (principal); I10 Essential (primary) hypertension; W22.8XXA Striking against or struck by other objects, initial encounter
CPT/HCPCS: 73030; 99283

== ENCOUNTER 2017-09-15 13:53 | Emergency (ER) | payer MEDICAID, MEDICARE ==
[~2017-09-15] VITALS: Ht 177.8 cm; Wt 112.6 kg
[~2017-09-15 13:53] MED LIST changes: -AZIT250T3 PO; -CHLO.12%30 SWISH-SPIT; +NAPR500 PO; -PENI500T PO
[2017-09-15 14:00] VITALS: BP 160/108; PULSE 83; RESP 16; TEMP 97.9; O2SAT 98
[2017-09-15] MEDS ORDERED: IBUPROFEN 800 MG TAB PO ONE (14:15)
--- NOTE | 2017-09-15 14:17 | PD ---
HPI Chief Complaint: Complaint Time Seen by Provider: 14:08 Travel History International Travel<30 days: No Contact w/Intl Traveler<30days: No Traveled to known affect area: No History of Present Illness HPI 36-year-old male presents to the emergency department for evaluation of right testicular pain that radiates to the right groin for 1 day. Current pain is 9/ 10, sharp, intermittent. Patient states he has had this pain before he was diagnosed with a cyst. No fevers or chills. He does state he had some burning with urination last night. He denies any new sexual contacts or risk of STDs. No exacerbating or alleviating factors. Moderate severity. PFSH Past Medical History Hx Anticoagulant Therapy: No Anxiety: Yes Cardiovascular Problems: Yes (htn on meds) High Cholesterol: Yes Diabetes: Yes (BORDERLINE) Diminished Hearing: No Hypertension: Yes Musculoskeletal: Yes (c/o "slipped disc" back ) Immunizations Current: Yes Thyroid Disease: Yes Past Surgical History Eye Surgery: Yes (RIGHT EYE) Social History Alcohol Use: Yes (Occasional) Tobacco Use: No Substance Use: No Allergies-Medications (Allergen,Severity, Reaction): Coded Allergies: No Known Allergies (Verified Adverse Reaction, Unknown, 09/15/17) Reported Meds & Prescriptions Reported Meds & Active Scripts Active Proair Hfa 8.5 GM Inh (Albuterol Sulfate) 90 Mcg/Act Aer 2 Puff INH Q4-6H PRN 108 mcg/actuation Reported Meloxicam 7.5 Mg Tab 7.5 Mg PO DAILY Prazosin (Prazosin HCl) 1 Mg Cap 1 Mg PO QD Gabapentin 300 Mg Cap 300 Mg PO TID Levothyroxine (Levothyroxine Sodium) 300 Mcg Tab 400 Mcg PO DAILY Lisinopril-Hctz 10-12.5 Mg Tab 1 Tab PO DAILY Metoprolol Tartrate 100 Mg Tab 100 Mg PO BID Review of Systems Except as stated in HPI: all other systems reviewed are Neg Physical Exam Narrative GENERAL: Well-nourished, well-developed male patient, afebrile SKIN: Focused skin assessment warm/dry. HEAD: Normocephalic. Atraumatic EYES: No scleral icterus. No injection or drainage. NECK: Supple, trachea midline. No JVD or lymphadenopathy. CARDIOVASCULAR: Regular rate and rhythm without murmurs, gallops, or rubs. RESPIRATORY: Breath sounds equal bilaterally. No accessory muscle use. Lung sounds are clear to auscultation. GASTROINTESTINAL: Abdomen soft, non-tender, nondistended. No abdominal pain to palpation. MUSCULOSKELETAL: No cyanosis, or edema. GENITOURINARY: Circumcised. Testes descended bilaterally without evidence of rotation. No lesions or erythema. No urethral discharge. This exam was done with RN at bedside. Data Data Last Documented VS Vital Signs Date Time Temp Pulse Resp B/P (MAP) Pulse Ox O2 Delivery O2 Flow Rate FiO2 09/15/17 14:00 97.9 83 16 160/108 (125) 98 Orders Orders Urinalysis - C+S If Indicated (09/15/17 14:12) Gc And Chlamydia Pcr (09/15/17 14:12) Us Testicles W Doppler (09/15/17 14:12) Ibuprofen (Motrin) (09/15/17 14:15) Ceftriaxone Inj (Rocephin Inj) (09/15/17 16:00) Lidocaine 1% Inj (50 Ml) (Xylocaine 1% I (09/15/17 16:00) Labs Laboratory Tests Test 09/15/17 14:20 Urine Collection Type CLEAN CATCH Urine Color YELLOW Urine Turbidity CLEAR Urine pH 6.0 Urine Specific [place] 1.020 Urine Protein NEG mg/dL Urine Glucose (UA) NEG mg/dL Urine Ketones NEG mg/dL Urine Occult Blood NEG Urine Nitrite NEG Urine Bilirubin NEG Urine Urobilinogen 0.2 MG/DL Urine Leukocyte Esterase NEG Urine RBC 0-3 /hpf Urine WBC 0-2 /hpf Urine Squamous Epithelial Cells 0-5 /hpf Microscopic Urinalysis Comment CULT NOT INDICATED Urine Collection Time 14:20 [facility] Medical Decision Making Medical Screen Exam Complete: Yes Emergency Medical Condition: Yes Medical Record Reviewed: Yes Interpretation(s) Last Impressions Scrotum Ultrasound 09/15/17 1412 Signed Impressions: Service Date/Time: Friday, September 15, 2017 14:32 - CONCLUSION: Testicles are normal. Flow is seen bilaterally. Normal hydroceles are seen. Clemente Garvey MD Differential Diagnosis Urethritis versus UTI versus epididymitis versus torsion Narrative Course 36-year-old male presents to the emergency department for evaluation of right testicular pain for 1 day. He appears well on exam. UA, urine for chlamydia/ gonorrhea, ultrasound of the testicles are ordered and pending. UA is unremarkable. US shows no acute abnormality. I reviewed previous chart where patient came in with similar symptoms. He was treated for urethritis last time he was here with similar symptoms. Patient was given Rocephin 250 mg IM and discharged prescription for doxycycline. He is encouraged to follow-up with his primary care physician. The patient was discharged in stable condition with instructions, including return instructions and follow up instructions. Diagnosis Primary Impression: Pain in right testicle Additional Impression: Urethritis, nonspecific Referrals: Primary Care Physician call for appointment Patient Instructions: General Instructions, Nonspecific Urethritis in Men (ED) , Testicle Pain (ED) Additional Instructions: Take antibiotic as directed until gone. Follow-up with a primary care physician. Return to the emergency department for any acute worsening of symptoms. Med/Other Pt SpecificInfo: Prescription(s) given Scripts Doxycycline Hyclate (Doxycycline Hyclate) 100 Mg Cap 100 MG PO BID for Infection, #20 CAP 0 Refills Prov: Daria Purcell 09/15/17 Disposition: DISCHARGE HOME Condition: Stable Daria Purcell Sep 15, 2017 14:17
[2017-09-15 14:40] LABS: BILIRUBIN, URINE NEG (NEG); BLOOD, URINE NEG (NEG); GLUCOSE,URINE NEG (NEG); KETONE, URINE NEG (NEG); NITRITE,URINE NEG (NEG); URINE COLOR YELLOW (YELLW/STRAW); URINE LEUKOCYTE ESTERASE NEG (NEG)
[2017-09-15 14:45] LABS: RBC, URINE 0-3 /hpf (0-3); SQUAMOUS EPITHELIAL CELL URINE 0-5 /hpf (0-5); WBC, URINE 0-2 /hpf (0-5)
--- NOTE | 2017-09-15 15:49 | RADRPT ---
EXAM DATE/TIME: 09/15/2017 14:32 [facility] COMPARISON: No previous studies available for comparison. INDICATIONS : Right groin pain. MEDICAL HISTORY : Hypertension. Hypercholesterolemia. Thyroid disease. Diabetic neuropathy. SURGICAL HISTORY : None. ENCOUNTER: Subsequent ACUITY: 1 day PAIN SCORE: 3/10 LOCATION: Bilateral testicles. MEASUREMENTS: RIGHT TESTICLE: 4.8 x 3.2 x 2.8cm LEFT TESTICLE: 4.9 x 3.3 x 2.5cm FINDINGS: RIGHT TESTICLE: Homogeneous echotexture without intra or extratesticular mass. Blood flow is symmetric and within no rmal limits. There is a minimal hydrocele. No varicocele is seen. Epididymis is within normal limit s. LEFT TESTICLE: Homogeneous echotexture without intra or extratesticular mass. Blood flow is symmetric and within no rmal limits. There is a minimal hydrocele. No varicocele is seen. Epididymis is within normal limits . SCROTUM: Within normal limits. CONCLUSION: Testicles are normal. Flow is seen bilaterally. Normal hydroceles are seen. Clemente Garvey MD on September 15, 2017 at 15:45 Board Certified Radiologist. This report was verified electronically.
[2017-09-15] MEDS ORDERED: DOXY100C PO (15:59)
[2017-09-15] MEDS ORDERED: LIDOCAINE HCL 1% 50 ML VIAL XX ONE (16:00)
[2017-09-15] MEDS ORDERED: cefTRIAXone 250 MG VIAL IM ONE (16:00)
== END 2017-09-15 16:45 | disposition home or self-care (01) ==
LOC: PHEFT 13:53
DX: N50.811 Right testicular pain (principal); N34.1 Nonspecific urethritis; F41.9 Anxiety disorder, unspecified; I10 Essential (primary) hypertension; E78.00 Pure hypercholesterolemia, unspecified; E07.9 Disorder of thyroid, unspecified; Z79.899 Other long term (current) drug therapy
CPT/HCPCS: 76870; 81001; 87491; 87591; 93975; 96372; 99284; J0696